=== PATIENT | female | born 2000 ===

== ENCOUNTER 2024-06-12 04:37 | Inpatient (IN) | payer OTHER ==
[2024-06-12] MEDS ORDERED: Methylergonovine 0.2 MG/1 ML Amp IM PRN (05:24)
[2024-06-12] MEDS ORDERED: Sodium Chloride 0.9% 20 ML SDV IV PRN (05:24)
[2024-06-12] MEDS ORDERED: Carboprost Tromethamine 250 MCG/1 mL Vial IM PRN (05:24)
[2024-06-12] MEDS ORDERED: Sodium Chloride 0.9% 10 ML Syringe FLUSH PRN (05:24)
[2024-06-12] MEDS ORDERED: Misoprostol 200 MCG Tab PO PRN (05:24)
[2024-06-12] MEDS ORDERED: Butorphanol 1 MG/ML SDV IVPUSH PRN (05:24)
[2024-06-12] MEDS ORDERED: Water For Irrigation,Sterile 1,000 ML Container IRR PRN (05:24)
[2024-06-12] MEDS ORDERED: Sodium Chloride 0.9% 2.5 ML Syringe FLUSH PRN (05:24)
[2024-06-12] MEDS ORDERED: Lidocaine 1% 50 ML MDV INJECT PRN (05:24)
[2024-06-12] MEDS ORDERED: Lactated Ringers 1,000 ML IV SCH (05:30)
[2024-06-12] MEDS ORDERED: Ropivacaine HCl/PF 200 ML ONE (05:32)
[2024-06-12] MEDS ORDERED: Phenylephrine HCl In 0.9% NaCl 1 MG/10 ML Syringe ONE (05:33)
[2024-06-12] MEDS ORDERED: fentaNYL 100 MCG/2 ML SDV ONE (05:41)
[2024-06-12] MEDS: Ropivacaine HCl/PF 400 MG in Premix Bag 1 BAG EPIDUR SCH (05:45)
[2024-06-12 05:47] LABS: HEMATOCRIT 39.3 % (37.0-47.0); HEMOGLOBIN 13.4 g/dL (12.0-16.0); MEAN CORPUSCULAR HEMOGLOBIN 29.7 pg (28.0-32.0); MEAN CORPUSCULAR HGB CONC 34.1 g/dL (32.0-36.0); MEAN CORPUSCULAR VOLUME 87.1 fL (83.0-99.0); MEAN PLATELET VOLUME 11.3 fL (9.4-12.3); PLATELET COUNT,PLT 281 K/uL (150-400); RED BLOOD CELL COUNT 4.51 M/uL (4.10-5.30); WHITE BLOOD CELL COUNT,WBC 17.54 K/uL (3.9-11.3)
[2024-06-12] MEDS ORDERED: ePHEDrine 50 MG/ML SDV IVPUSH PRN (05:50)
[2024-06-12] MEDS ORDERED: Phenylephrine HCl In 0.9% NaCl 1 MG/10 ML Syringe IVPUSH PRN (05:50)
[2024-06-12] MEDS ORDERED: dexmedeTOMIDine HCl 200 MCG/2 ML SDV EPIDUR SCH (06:00)
[2024-06-12] MEDS: Oxytocin/0.9 % Sodium Chloride 30 UNIT/500 ML BAG IV SCH (07:05)
[2024-06-12] MEDS: Witch Hazel Medicated Pads 40/Jar TOP ONE (09:56)
[2024-06-12] MEDS: Benzocaine/Menthol 20%-0.5% Spray 78 GM Cannister ONE (09:56)
[2024-06-12] MEDS ORDERED: Witch Hazel Medicated Pads 40/Jar TOP PRN (10:42)
[2024-06-12] MEDS ORDERED: Lanolin 100% Cream 7 GM Tube TOP PRN (10:42)
[2024-06-12] MEDS ORDERED: Benzocaine/Menthol 20%-0.5% Spray 78 GM Cannister TOP PRN (10:42)
[2024-06-12] MEDS: dexmedeTOMIDine HCl 200 MCG/2 ML SDV ONE (10:53)
[2024-06-12] MEDS: Ibuprofen 800 MG Tab PO PRN (12:22)
[2024-06-12] MEDS: Acetaminophen 500 MG Tab PO PRN (16:07)
[2024-06-12] MEDS: Docusate Sodium 100 MG Cap PO PRN (20:59)
[2024-06-13 04:51] LABS: HEMATOCRIT 34.9 % (37.0-47.0); HEMOGLOBIN 11.5 g/dL (12.0-16.0)
[2024-06-13 07:07] LABS: GROUP B STREP BY PCR NEGATIVE (NEGATIVE)
== END 2024-06-13 13:26 | disposition home or self-care (01) | DRG 807 ==
LOC: MW.OB 04:37
PROVIDERS: ADMIT Obstetrics & Gynecology Obstetrics; ATTEND Obstetrics & Gynecology Obstetrics
PROC: 10E0XZZ Delivery of Products of Conception, External Approach (ICD-10-PCS; principal; 2024-06-12)
PROC: 0HQ9XZZ Repair Perineum Skin, External Approach (ICD-10-PCS; 2024-06-12)
PROC: 3E0R3BZ Introduction of Anesthetic Agent into Spinal Canal, Percutaneous Approach (ICD-10-PCS; 2024-06-12)
PROC: 00HU33Z Insertion of Infusion Device into Spinal Canal, Percutaneous Approach (ICD-10-PCS; 2024-06-12)
DX: O34.219 Maternal care for unspecified type scar from previous cesarean delivery (principal); Z37.0 Single live birth; O70.0 First degree perineal laceration during delivery; Z3A.39 39 weeks gestation of pregnancy
CPT/HCPCS: 36415; 59025; 59409; 85014; 85018; 85027; 86592; 86850; 86900; 86901; 87653; A9270-GY; J2371; J2590; J2795; J3010